=== PATIENT | male | born 1990 | race Caucasian/White ===

== ENCOUNTER 2017-03-11 10:35 | Emergency (ER) | payer OTHER ==
[2017-03-11] MEDS ORDERED: KETOROLAC 60 MG/2 ML VIAL IM STA (13:07)
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
[2017-03-11] MEDS ORDERED: KETOROLAC 60 MG/2 ML VIAL ONE (13:19)
[2017-03-11 13:28] VITALS: BP 148/97
== END 2017-03-11 13:28 | disposition home or self-care (01) ==
LOC: ED 10:35
DX: M79.1 Myalgia (principal); V43.52XA Car driver injured in collision with other type car in traffic accident, initial encounter; Y92.488 Other paved roadways as the place of occurrence of the external cause; F17.200 Nicotine dependence, unspecified, uncomplicated
CPT/HCPCS: 96372; 99283